=== PATIENT | female | born 1995 | race African-American/Black ===

== ENCOUNTER 2017-06-03 11:28 | Emergency (ER) | payer OTHER, MEDICAID ==
[~2017-06-03] VITALS: Ht 167.6 cm; Wt 70.0 kg
[2017-06-03] MEDS ORDERED: RISP05 PO (11:33)
[2017-06-03] MEDS ORDERED: DIVAL250 PO (11:33)
[2017-06-03 12:56] LABS: *BARBITURATES SCREEN URINE NEGATIVE (NEGATIVE); *BENZODIAZEPINES SCREEN URINE NEGATIVE (NEGATIVE); *COCAINE SCREEN URINE NEGATIVE (NEGATIVE); METHADONE URINE SCREEN NEGATIVE (NEGATIVE)
[2017-06-03 12:57] LABS: *AMPHETAMINES SCREEN URINE NEGATIVE (NEGATIVE); OPIATES URINE SCREEN NEGATIVE (NEGATIVE); PHENCYCLIDINE URINE SCREEN NEGATIVE (NEGATIVE)
[2017-06-03 13:00] LABS: CANNABINOID URINE SCREEN PRESUMTIVE POSITIVE (NEGATIVE)
[2017-06-03 14:22] LABS: BASOPHILS % 1.3 % (0.0-2.0); EOSINOPHILS % 2.4 % (0.0-5.0); HEMATOCRIT. 35.4 % (36.0-48.0); LYMPHOCYTES % 37.3 % (20.0-50.0); MEAN CORPUSCULAR HEMOGLOBIN 32.2 pg (28.0-32.0); MEAN CORPUSCULAR VOLUME 94.7 fL (81.0-99.0); MEAN PLATELET VOLUME 7.6 fl (7.4-10.4); MONOCYTES % 9.6 % (2.0-8.0); NEUTROPHILS % 49.4 % (40.0-76.0); PLATELET 354 x1000/uL (130-400); RED BLOOD CELL COUNT 3.73 mill/uL (4.2-5.4); RED CELL DISTRIBUTION WIDTH 12.8 % (11.6-14.6)
[2017-06-03 14:28] LABS: CHLORIDE 105 mEq/L (98-107)
[2017-06-03 14:33] LABS: ETHANOL BLOOD < 10 mg/dL
[2017-06-04 02:53] VITALS: BP 109/59
== END 2017-06-04 03:00 ==
LOC: ER 11:56
DX: R44.0 Auditory hallucinations (principal); R44.1 Visual hallucinations; F20.9 Schizophrenia, unspecified
CPT/HCPCS: 36415; 80048; 80305; 80307; 80329; 81025; 85025; 99285; G0482